=== PATIENT | male | born 1955 | race Asian ===

== ENCOUNTER 2016-05-20 09:31 | Emergency (ER) | payer OTHER ==
[~2016-05-20] VITALS: Ht 165.1 cm; Wt 85.0 kg
[2016-05-20] MEDS ORDERED: CETI-260 PO (09:38)
[2016-05-20] MEDS ORDERED: AMLO-511 PO (09:38)
[2016-05-20] MEDS ORDERED: ATOR40TA28 PO (09:38)
[2016-05-20] MEDS ORDERED: ASPI81 PO (09:38)
[2016-05-20] MEDS ORDERED: VALS160T2 PO (09:38)
[2016-05-20 10:40] LABS: INFLUENZA TYPE B NEGATIVE FOR TYPE B (NEGATIVE)
[2016-05-20 11:29] VITALS: BP 127/75
== END 2016-05-20 11:31 | disposition home or self-care (01) ==
LOC: EMS 09:32
DX: J06.9 Acute upper respiratory infection, unspecified (principal); I11.9 Hypertensive heart disease without heart failure; E78.00 Pure hypercholesterolemia, unspecified; Z79.82 Long term (current) use of aspirin
CPT/HCPCS: 71020; 87804; 99285

== ENCOUNTER → 2020-06-30 | Outpatient (CLI) | payer OTHER ==
[~2020-06-30] MED LIST: AMLO-257 PO; ASPI-1450 PO; ATOR40TA28 PO; CETI-450 PO; VALS160T2 PO
== END | disposition home or self-care (01) ==
LOC: RADPV 11:17
PROVIDERS: ATTEND Internal Medicine
DX: M46.06 Spinal enthesopathy, lumbar region (principal)
CPT/HCPCS: 72100

== ENCOUNTER 2025-03-14 14:50 | Emergency (ER) | payer MEDICARE, OTHER ==
[~2025-03-14] VITALS: Ht 165.1 cm; Wt 81.8 kg
[~2025-03-14 14:50] MED LIST changes: -CETI-450 PO; +CETI10TA77 PO
[2025-03-14 14:54] VITALS: BP 137/78; PULSE 91; RESP 18; TEMP 99; O2SAT 99
[2025-03-14] MEDS ORDERED: AMOX250C4 PO (17:46)
[2025-03-14] MEDS ORDERED: TRAM50TA5 PO (17:46)
[2025-03-14] MEDS: AMOXICILLIN TRIHYDRATE 250 MG CAPSULE PO ONE (18:17)
[2025-03-14] MEDS: KETOROLAC TROMETHAMINE 30 MG/ML VIAL IM ONE (18:17)
== END 2025-03-14 18:19 | disposition home or self-care (01) ==
LOC: EMS 14:50
DX: K08.89 Other specified disorders of teeth and supporting structures (principal); E78.00 Pure hypercholesterolemia, unspecified; I11.9 Hypertensive heart disease without heart failure; Z79.82 Long term (current) use of aspirin; Z79.899 Other long term (current) drug therapy
CPT/HCPCS: 99283; 96372; J1885